=== PATIENT | male | born 1975 | race Caucasian/White ===

== ENCOUNTER → 2016-06-06 | Outpatient (CLI) | payer MEDICARE, MEDICAID ==
--- NOTE | 2016-06-07 10:45 | US ---
EXAM DESCRIPTION: Testicular CLINICAL HISTORY: 41 years, Male, TESTICLE MASS on left COMPARISON: FINDINGS: Right testicle 4.6 x 3.5 x 2.7 cm. Left testicle 4.7 x 2.5 x 3.3 cm. Both testicles have appropriate vascularity and normal echogenicity. Very small left hydrocele. Left varicocele present Right epididymis is normal in appearance with the head measuring 6 x 7 mm. Left epididymis is hypervascular particularly in the epididymal tail. Left epididymal head at 5 x 8 mm cross-section IMPRESSION: 1. Palpable region is in the area of the left epididymis tail which is inflamed and hypervascular. Findings are compatible with epididymitis 2. Testicles are normal bilaterally 3. Left varicocele. Small left hydrocele. Electronically signed by: Jason Johnston MD 06/07/2016 10:44 AM CDT
== END | disposition home or self-care (01) ==
LOC: US 14:56
PROVIDERS: ATTEND Family Medicine
DX: N44.8 Other noninflammatory disorders of the testis (principal)

== ENCOUNTER → 2016-12-19 | Outpatient (CLI) | payer MEDICARE, MEDICAID | END | disposition home or self-care (01) | LOC: GMAB 18:18 | PROVIDERS: ATTEND Family Medicine | DX: Z12.5 Encounter for screening for malignant neoplasm of prostate (principal); R53.82 Chronic fatigue, unspecified; Z79.899 Other long term (current) drug therapy | CPT/HCPCS: 84403; 84443; G0103 ==

== ENCOUNTER 2017-11-01 13:18 | Emergency (ER) | payer MEDICARE, MEDICAID ==
[2017-11-01 13:36] VITALS: BP 130/74; TEMP 99.9; O2SAT 99
[2017-11-01] MEDS ORDERED: LIDOCAINE 2 % GEL 5 ML TUBE TOP ONE (13:41)
[2017-11-01] MEDS ORDERED: LIDOCAINE HCL 2% (MOUTH-THROAT) 15 ML UD ONE (13:49)
--- NOTE | 2017-11-01 14:36 | ED.PDOC ---
History of Present Illness - General Chief Complaint: Problem Stated Complaint: difficulty with urination/self cath Time Seen by Provider: 11/01/17 13:38 Source: patient Exam Limitations: no limitations - History of Present Illness Initial Comments: The patient is a 42-year-old male presenting to the emergency room secondary to inability to self catheter since around 2 AM last night. He reports that for a long time he's had some extra pressure around the area of the prostate making it difficult for him to get a catheter passed but he has always been able to. Last night he was unable to and has had some bleeding from the urethra since that time. No fevers. He is having some abdominal discomfort from the bladder distention. No history of any renal failure. No history of any bleeding diatheses. He is a paraplegic. Allergies/Adverse Reactions: Allergies Codeine Allergy (Verified 11/01/17 13:34) Sulfa Antibiotics Allergy (Verified 11/01/17 13:34) Review of Systems - Review of Systems Review of Systems: 11/01/17 14:34 for new symptoms only Constitutional: States: no symptoms reported EENTM: States: no symptoms reported Respiratory: States: no symptoms reported Cardiology: States: no symptoms reported Gastrointestinal/Abdominal: States: no symptoms reported Genitourinary: States: see HPI Musculoskeletal: States: no symptoms reported Skin: States: no symptoms reported Neurological: States: no symptoms reported All other Systems: No Change from Baseline Past Medical History (General) - Patient Medical History Surgical History: cholecystectomy - Vaccination History Hx Influenza Vaccination: No Hx Pneumococcal Vaccination: No - Social History Hx Tobacco Use: Yes Hx Alcohol Use: Yes - 2-3 times weekly Hx Substance Use Treatment: No Family Medical History - Family History Mother Family History: Unknown Living Status: Still Living Physical Exam - Physical Exam General Appearance: Alert, Comfortable, No apparent distress Eye Exam: bilateral normal Ears, Nose, Throat: normal ENT inspection, normal pharynx Neck: full range of motion, supple Respiratory: no respiratory distress, no accessory muscle use Cardiovascular/Chest: normal peripheral pulses, regular rate, rhythm, no edema Peripheral Pulses: radial,right: 2+, radial,left: 2+ Gastrointestinal/Abdominal: soft, other - palpable bbladder. Mild discomfort. Rectal Exam: deferred Back Exam: no CVA tenderness, no vertebral tenderness Extremity: other - the patient is a paraplegic in his lower extremities Neurologic: negative assembler II-XII nml as tested, alert, normal mood/affect, oriented x 3, other - chronic changes from lower extremity paraplegia Skin Exam: normal color Comments: Vital Signs - 24 hr 11/01/17 13:22 Temperature 99.9 F H Pulse Rate [ 96 H pulse ox] Respiratory 18 Rate Blood Pressure 130/74 [Right Arm] O2 Sat by Pulse 99 Oximetry Progress - Progress Progress: 11/01/17 14:35 the patient's a 42-year-old male presenting to the emergency room secondary to inability to perform his self catheterizations. He is having significant urinary retention due to that. We did attempt 4 times here with different size and types of catheters and have been unable to pass a catheter either. I have contacted Dr. Jacobs. he has agreed to see the patient in his office. The patient is to go from here directly to Dr. Jacobs's office at [address] [facility] for evaluation and intervention. The patient has agreed to this. ER warnings were given. Departure - Departure Clinical Impression: Retention of urine Disposition: Discharge to Home or Self Care Condition: Fair Departure Forms: ED Discharge - Pt. Copy, Patient Portal Self Enrollment Instructions: DI for Urinary Retention in Men Diet: regular diet Activity: increase activity as tolerated Referrals: JARROD RICHARD MD [Primary Care Provider] - 1-2 Weeks Additional Instructions: the patient's a 42-year-old male presenting to the emergency room secondary to inability to perform his self catheterizations. He is having significant urinary retention due to that. We did attempt 4 times here with different size and types of catheters and have been unable to pass a catheter either. I have contacted Dr. Jacobs. he has agreed to see the patient in his office. The patient is to go from here directly to Dr. Jacobs's office at [address] [facility] for evaluation and intervention. The patient has agreed to this. ER warnings were given. he is do not eat or drink anything until after he has been evaluated by Dr. Jacobs.
== END 2017-11-01 15:03 | disposition home or self-care (01) ==
LOC: ER 13:18
DX: R33.9 Retention of urine, unspecified (principal); Z88.5 Allergy status to narcotic agent; Z88.2 Allergy status to sulfonamides; Z87.891 Personal history of nicotine dependence

== ENCOUNTER → 2017-12-21 | Outpatient (CLI) | payer MEDICARE, MEDICAID | LOC: GMAE 16:54 | PROVIDERS: ATTEND Family Medicine | DX: Z12.5 Encounter for screening for malignant neoplasm of prostate (principal); Z79.899 Other long term (current) drug therapy | CPT/HCPCS: 84443; G0103 ==

== ENCOUNTER → 2018-12-19 | Outpatient (CLI) | payer MEDICARE, MEDICAID | LOC: GMAE 14:14 | PROVIDERS: ATTEND Family Medicine | DX: E78.2 Mixed hyperlipidemia (principal); R94.8 Abnormal results of function studies of other organs and systems; Z79.899 Other long term (current) drug therapy; Z12.5 Encounter for screening for malignant neoplasm of prostate; Z87.19 Personal history of other diseases of the digestive system | CPT/HCPCS: 82150; 84403; 84443; G0103 ==

== ENCOUNTER → 2020-01-22 | Outpatient (CLI) | payer MEDICARE, MEDICAID | LOC: GMAE 10:48 | PROVIDERS: ATTEND Family Medicine | DX: Z12.5 Encounter for screening for malignant neoplasm of prostate (principal); Z79.899 Other long term (current) drug therapy; E78.2 Mixed hyperlipidemia | CPT/HCPCS: 84443; G0103 ==